=== PATIENT | male | born 1995 | race Asian ===

== ENCOUNTER 2018-02-16 11:26 | Emergency (ER) | payer OTHER ==
[2018-02-16 11:34] VITALS: BP 127/63
--- NOTE | 2018-02-16 12:35 | EDPHY ---
H & P Smoking Status: Never smoked Time Seen by Provider: 02/16/18 12:14 HPI/ROS: CHIEF COMPLAINT: Cat bite left hand HISTORY OF PRESENT ILLNESS: 23-year-old male presents to the emergency department with a cat bite to his left hand. The patient was at his friend's house and was pending the CT and subsequently bit him in the dorsal aspect of his left hand. The incident happened at 4:00 p.m. Yesterday. The cat is up-to- date on immunizations. The patient believes he has current tetanus immunization. Denies any other complaints. ROS: Denies numbness or tingling in fingers, denies retained foreign body, pain in the left wrist. (Elizabeth Spaulding) Past Medical/Surgical History: Negative (Elizabeth Spaulding) Social History: [employer] student (Elizabeth Spaulding) Physical Exam: On examination the patient has a 1 cm very superficial laceration the dorsal aspect of the left hand between the webspace of the thumb and index finger. No active bleeding noted. Minimally tender to palpate. No evidence of retained foreign body. No lymphangitic streaking. Full range of motion of his fingers in his left wrist. (Elizabeth Spaulding) Constitutional: Initial Vital Signs Temperature (C) 36.3 C 02/16/18 11:30 Heart Rate 102 H 02/16/18 11:30 Respiratory Rate 16 02/16/18 11:30 Blood Pressure 127/63 H 02/16/18 11:30 O2 Sat (%) 96 02/16/18 11:30 O2 Delivery Mode Room Air Allergies/Adverse Reactions: No Known Allergies Allergy (Unverified 02/16/18 11:29) Home Medications: Medication Instructions Recorded Amoxicillin/Clavulanate Pot 875 mg PO BID #10 tab 02/16/18 [Augmentin 875 mg tab] MDM/Departure - MDM ED Course/Re-evaluation: No signs of infection on examination. The patient will be treated conservatively with Augmentin 875 mg twice daily for 5 days. Given wound care precautions. He will return if he has any concerns. He was also instructed to keep the wound dry, clean and protected. (Elizabeth Spaulding) The patient was evaluated and managed by the physician assistant news director. I have reviewed this chart and I agree with the findings and plan of care as documented , as indicated by my signature. I am the secondary supervising physician. ( Rabia Lew) - Depart Disposition: Home, Routine, Self-Care Clinical Impression: Cat bite of left hand Qualifiers: Encounter type: initial encounter Qualified Code(s): S61.452A - Open bite of left hand, initial encounter; W55.01XA - Bitten by cat, initial encounter; W55.01XA - Bitten by cat, initial encounter Condition: Good Instructions: Animal Bite (ED) Additional Instructions: Augmentin 875 mg twice daily for 5 days to prevent infection. Please return to the emergency department if you develop redness, swelling, increased pain, fever , purulent drainage or any other concerns. Prescriptions: Amoxicillin/Clavulanate Pot [Augmentin 875 mg tab] 875 mg PO BID #10 tab Referrals: Geovany Zavala MD [[facility] Primary Care Provider] - As per Instructions (primary care provider procurement professional logistics )
== END 2018-02-16 12:55 | disposition home or self-care (01) ==
DX: S61.452A Open bite of left hand, initial encounter (principal); W55.01XA Bitten by cat, initial encounter; Y93.K9 Activity, other involving animal care; Y92.9 Unspecified place or not applicable; Y99.9 Unspecified external cause status

== ENCOUNTER 2018-02-16 20:03 | Emergency (ER) | payer OTHER ==
[2018-02-16 20:13] VITALS: BP 150/86
--- NOTE | 2018-02-16 20:17 | EDPHY ---
General Time Seen by Provider: 02/16/18 20:08 Narrative: CHIEF COMPLAINT: Cat bite requesting rabies vaccine HISTORY OF PRESENT ILLNESS: Patient presents with complaints of cat bite and requesting rabies post exposure prophylaxis. He states that he was here earlier today for a cat bite to the left hand. This was a friend's cat that is reportedly vaccinated and kept inside the home. He was treated here and prescribed prophylactic Augmentin. He returns because his "mother and father demanded that I get the rabies shot." He is referring to rabies post exposure prophylaxis. He has no complaints of any kind other than this. No modifying factors TETANUS STATUS: Up to date MEDICAL/SURGICAL/SOCIAL HISTORY: Uncomplicated REVIEW OF SYSTEMS: Ten systems reviewed and are negative unless otherwise noted in the HPI EXAMINATION General Appearance: Alert, no distress Head: normocephalic, atraumatic Cardiovascular: Pulses normal throughout. Brisk cap refill with good signs of perfusion of both hands. Neurological: A&O, light and 2 point sensory symmetric of the hands, strength symmetric Skin: Warm and dry, no rash. Superficial abrasion/puncture to the dorsum of the left hand between the thumb and the index finger. No bleeding. No surrounding ecchymosis, erythema, fluctuance or induration. There is no tenosynovitis or lymphangitis. Extremities: Nontender, no pedal edema. Symmetric range of motion of both hands. DIFFERENTIAL DIAGNOSES: Including but not limited to cat bite, pasteurella MDM: 8:10 p.m. Cat bite to left hand with evaluation here earlier today. This is a very superficial wound. He has been placed on Augmentin. The animal in question is a domestic, house-kept cat the belongs to his friend. Animal Control was notified earlier by Maynor Burr RN. The patient has no concern but reports that his parents are very concerned, "demanding that I get the rabies shot." I had a very lengthy discussion with him twice regarding that this does not meet criteria for rabies post exposure prophylaxis. We have provided documentation for this. I have provided the information for [facility] for him to contact tomorrow should they wish to follow up accordingly. We discussed wound care precautions. We discussed following up with animal control for monitoring of the animal. I have answered all of his questions. He will be discharged home stable condition. SUPERVISION: This patient was independently evaluated without direct involvement of or examination by the attending physician. ED Precautions: Worsening pain. Erythema, edema, cyanosis, pallor, paresthesia or anesthesia. - History Smoking Status: Never smoked - Objective Allergies/Adverse Reactions: No Known Allergies Allergy (Unverified 02/16/18 11:29) Home Medications: Medication Instructions Recorded Amoxicillin/Clavulanate Pot 875 mg PO BID #10 tab 02/16/18 [Augmentin 875 mg tab] Departure - Departure Disposition: Home, Routine, Self-Care Clinical Impression: Cat bite of left hand Qualifiers: Encounter type: subsequent encounter Qualified Code(s): S61.452D - Open bite of left hand, subsequent encounter; W55.01XD - Bitten by cat, subsequent encounter; W55.01XD - Bitten by cat, subsequent encounter Condition: Good Instructions: Animal Bite (ED) Additional Instructions: 1. Continue your previous Augmentin as prescribed under earlier visit today 2. Continue wound care to the left hand as instructed earlier today 3. I provided the information with [facility] if he would like to follow up with them regarding this 4. Return here for any signs of infection to the hand as discussed Referrals: [facility] (ED,. [Edm Groups for Call Sched] - As per Instructions
== END 2018-02-16 20:31 | disposition home or self-care (01) ==
DX: S61.452D Open bite of left hand, subsequent encounter (principal); W55.01XD Bitten by cat, subsequent encounter; Y99.9 Unspecified external cause status